=== PATIENT | female | born 1985 | race African-American/Black ===

== ENCOUNTER 2021-06-11 09:35 | Day surgery (SDC) | payer MEDICAID ==
[2021-06-11 10:03] VITALS: BMI 24.7
[2021-06-11] MEDS ORDERED: hydrALAZINE 20 MG/ML VIAL SLOW IVP PRN (10:21)
[2021-06-11 10:51] LABS: Bilirubin Neg (Negative); Blood, Urine Negative (Negative); Clarity Clear (Clear); Glucose, Urine (Dipstick) Normal (Negative); Ketone, Urine Negative (Negative); Leukocyte Negative (Negative); Nitrite Negative (Negative); Protein, Urine (Dipstick) Negative (Neg-Trace); Specific Gravity, Urine 1.005 (1.002-1.036); Urobilinogen Normal mg/dL (Less than 2)
[2021-06-11 11:32] LABS: Bacteria/HPF None Seen HPF (None Seen); RBC/HPF 0-3 HPF (0-3); Squamous Epithelial 0-3 HPF (0-3); WBC/HPF 0-3 HPF (0-3)
== END 2021-06-11 12:02 | disposition home or self-care (01) ==
LOC: CSHLD/OP 09:35
PROVIDERS: ATTEND Obstetrics & Gynecology
DX: O99.891 Other specified diseases and conditions complicating pregnancy (principal); R10.32 Left lower quadrant pain; O34.211 Maternal care for low transverse scar from previous cesarean delivery; Z3A.23 23 weeks gestation of pregnancy; Z79.899 Other long term (current) drug therapy
CPT/HCPCS: 81001

== ENCOUNTER 2021-09-23 16:16 | Inpatient (IN) | payer OTHER ==
[2021-09-23] MEDS ORDERED: Acetaminophen 500 MG TAB PO PRN (17:56)
[2021-09-23] MEDS ORDERED: Dextrose 5%-Lactated Ringers 1,000 ML IV SCH (18:00)
[2021-09-23 18:06] VITALS: BMI 26.6
[2021-09-24] MEDS ORDERED: Metoclopramide HCl 10 MG/2 ML VIAL ONE (08:47)
[2021-09-24] MEDS ORDERED: Dexamethasone 4 mg/ml Vial ONE (08:47)
[2021-09-24] MEDS ORDERED: Ondansetron PF 4 MG/2 ML Vial ONE (08:47)
[2021-09-24] MEDS ORDERED: Ketorolac Tromethamine 30 MG/ML VIAL ONE (08:48)
[2021-09-24] MEDS ORDERED: Phenylephrine 40 MG/NS 250 ML 250 ML ONE (08:48)
[2021-09-24] MEDS ORDERED: Oxytocin 10 UNITS/ML VIAL ONE ×2 (08:48→10:49)
[2021-09-24] MEDS ORDERED: Morphine PF 10 MG/10 ML VIAL ONE (08:51)
[2021-09-24] MEDS ORDERED: Bicitra 30 ML UDCUP PO PRN (09:25)
[2021-09-24] MEDS ORDERED: Famotidine/PF 20 mg/2ml Vial SLOW IVP PRN (09:25)
[2021-09-24] MEDS ORDERED: ceFAZolin 2 GM/Dextrose 50 ML 2 GM in Premix Bag 1 BAG IVPB SCH (09:30)
[2021-09-24] MEDS ORDERED: Famotidine/PF 20 mg/2ml Vial ONE (09:32)
[2021-09-24] MEDS ORDERED: ceFAZolin 2 GM/Dextrose 50 ML IVPB ONE (09:32)
[2021-09-24] MEDS ORDERED: Naloxone HCl 0.4 mg/ml Vial IV PRN (09:34)
[2021-09-24] MEDS ORDERED: Fentanyl 100 MCG/2 ML VIAL SLOW IVP PRN (09:34)
[2021-09-24] MEDS ORDERED: Meperidine HCl/PF 25 MG/ML VIAL SLOW IVP PRN (09:34)
[2021-09-24] MEDS ORDERED: Promethazine HCl 25 MG/ML VIAL IM PRN (09:34)
[2021-09-24] MEDS ORDERED: Promethazine HCl 25 MG SUPP PR PRN (09:34)
[2021-09-24] MEDS ORDERED: Naloxone HCl 0.4 mg/ml Vial IVP PRN ×2 (09:34)
[2021-09-24] MEDS ORDERED: Ondansetron HCl/PF 4 MG/2 ML Vial IVP PRN (09:34)
[2021-09-24] MEDS ORDERED: Moisturizing Cream (Eucerin) 113 GM JAR TOP PRN (09:34)
[2021-09-24 09:35] LABS: Hemoglobin 10.5 g/dL (12.0-15.5); Mean Corpuscular Hemoglobin 28.5 pg (27.0-33.0); Mean Corpuscular Volume 89.1 fl (81.6-98.3); Mean Platelet Volume 9.9 fl (7.4-10.4); Platelet Count 215 10x3/uL (150-450); RBC Distribution Width 12.9 % (11.5-14.5); Red Blood Cell (RBC) Count 3.68 10x6/uL (3.90-5.03); White Blood Cell (WBC) Count 8.7 10x3/uL (3.5-10.5)
[2021-09-24] MEDS ORDERED: Ketorolac Tromethamine 30 MG/ML VIAL IVP SCH (09:45)
[2021-09-24] MEDS ORDERED: Communication Order-Pharmacy FS SCH (09:45)
[2021-09-24 10:09] LABS: Syphilis Antibody Nonreactive (Nonreactive); Syphilis Antibody Index 0.06 S/CO (<1.00 Non-Reactive)
[2021-09-24 10:10] LABS: Hep B Surf Ag Non-Reactive S/CO (NonReactive)
[2021-09-24] MEDS ORDERED: diphenhydrAMINE 50 MG/ML VIAL ONE (10:25)
[2021-09-24] MEDS ORDERED: ePHEDrine Sulfate 50 MG/10 ML VIAL ONE (10:40)
[2021-09-24] MEDS ORDERED: Fentanyl 100 MCG/2 ML VIAL ONE (11:38)
[2021-09-24] MEDS: Fentanyl 100 MCG/2 ML VIAL SLOW IVP SCH ×2 (11:40→11:58)
[2021-09-24] MEDS: Ondansetron PF 4 MG/2 ML Vial IVP PRN ×2 (12:47→17:03)
[2021-09-24 13:53] LABS: SARS-CoV-2 NAA Rapid Test Not Detected (NotDetected)
[2021-09-24] MEDS: diphenhydrAMINE 50 MG/ML VIAL IVP PRN ×2 (17:00→23:58)
[2021-09-24] MEDS: Ketorolac Tromethamine 30 MG/ML VIAL IVP PRN ×2 (17:05→23:49)
[2021-09-25] MEDS ORDERED: HYDROcodone/Acetaminophen 5/325 mg Tablet PO PRN (09:07)
[2021-09-25] MEDS ORDERED: Ferrous Sulfate 325 MG TAB PO SCH (09:15)
[2021-09-25] MEDS ORDERED: Ibuprofen 800 MG TAB PO SCH (09:30)
[2021-09-25] MEDS: HYDROcodone/Acetaminophen 5/325 mg Tablet PO PRN ×2 (10:28→23:46)
[2021-09-25] MEDS: Prenatal Vitamin 1 TAB PO SCH (10:30)
[2021-09-25] MEDS: Docusate 100 MG CAP PO SCH ×2 (10:30→21:03)
[2021-09-25] MEDS: Ibuprofen 800 MG TAB PO SCH ×2 (13:56→21:03)
[2021-09-25] MEDS: Ferrous Sulfate 325 MG TAB PO SCH (18:55)
[2021-09-26] MEDS: Ibuprofen 800 MG TAB PO SCH ×2 (05:26→13:50)
[2021-09-26 07:41] VITALS: BP 110/72; TEMP 98.3
[2021-09-26] MEDS: Ferrous Sulfate 325 MG TAB PO SCH (09:11)
[2021-09-26] MEDS: Prenatal Vitamin 1 TAB PO SCH (09:12)
[2021-09-26] MEDS: Docusate 100 MG CAP PO SCH (09:12)
== END 2021-09-26 16:55 | disposition home or self-care (01) | DRG 787 ==
LOC: CSHLD/OP 16:16 → CSHLD 09-24 10:51 → CSHPED 09-24 13:30 → CSHPP 09-25 18:36
PROVIDERS: ADMIT Obstetrics & Gynecology; ATTEND Obstetrics & Gynecology
PROC: 10D00Z1 Extraction of Products of Conception, Low, Open Approach (ICD-10-PCS; principal; 2021-09-26)
DX: O76 Abnormality in fetal heart rate and rhythm complicating labor and delivery (principal); O41.03X0 Oligohydramnios, third trimester, not applicable or unspecified; Z20.822 Contact with and (suspected) exposure to COVID-19; Z3A.38 38 weeks gestation of pregnancy; Z37.0 Single live birth; O34.211 Maternal care for low transverse scar from previous cesarean delivery; O36.8130 Decreased fetal movements, third trimester, not applicable or unspecified
CPT/HCPCS: 36415; 51702; 76819; 85027; 86780; 86850; 86900; 86901; 87340; 99285; J0690; J1100; J1200; J1885; J2274; J2310; J2405; J2590; J2765; J3010; S0028; U0002

== ENCOUNTER 2022-03-05 09:45 | Emergency (ER) | payer BC, OTHER ==
[2022-03-05] MEDS ORDERED: Ketorolac Tromethamine 30 MG/ML VIAL ONE (12:47)
[2022-03-05] MEDS ORDERED: Phenylephrine 10 MG/ML VIAL ONE (13:05)
[2022-03-05] MEDS ORDERED: Phenylephrine 40 MG/NS 250 ML 250 ML ONE (13:06)
== END 2022-03-05 12:41 | disposition home or self-care (01) ==
LOC: CSHERS 09:45
DX: M25.511 Pain in right shoulder (principal)
CPT/HCPCS: 96372; J1885; J2370

== ENCOUNTER 2024-01-10 13:24 | Outpatient (CLI) | payer OTHER | END 2024-01-10 13:25 | disposition home or self-care (01) | LOC: CSHWCC 13:24 | PROVIDERS: ATTEND Nurse Practitioner Family | DX: T81.31XD Disruption of external operation (surgical) wound, not elsewhere classified, subsequent encounter (principal); S81.852D Open bite, left lower leg, subsequent encounter | CPT/HCPCS: 11042; 11045; 99213; G0463 ==

== ENCOUNTER 2024-01-24 16:00 | Outpatient (CLI) | payer OTHER | END 2024-01-24 16:01 | disposition home or self-care (01) | LOC: CSHWCC 16:00 | PROVIDERS: ATTEND Nurse Practitioner Family | DX: S81.852D Open bite, left lower leg, subsequent encounter (principal); L97.222 Non-pressure chronic ulcer of left calf with fat layer exposed | CPT/HCPCS: 11042 ==